=== PATIENT | male | born 1995 | race Caucasian/White ===

== ENCOUNTER 2018-10-22 16:15 | Emergency (ER) | payer OTHER ==
[2018-10-22 16:35] VITALS: BP 116/60; PULSE 78; TEMP 99.2; BMI 25.0
[2018-10-22] MEDS ORDERED: ALBUTEROL SO4 0.083% IH SOL 2.5 MG/3 ML VIAL.NEB. NEB ONE (17:07)
[2018-10-22] MEDS ORDERED: ALBUTEROL SO4 2.5/IPRATROPIUM 0.5 INH SOL 3 ML VIAL.NEB. NEB ONE (17:13)
--- NOTE | 2018-10-22 17:21 | PDOC ---
History of Present Illness - General Chief Complaint: Cold Symptoms Stated Complaint: COLD SYMPTOMS Time Seen by Provider: 10/22/18 16:45 History Source: Patient Exam Limitations: No Limitations - History of Present Illness Initial Comments: 10/22/18 17:08 23 yr male with no pmhx presents with cough for one week not improving with OTC meds and tessalon. Pt states he has had URI symptoms for 2 weeks that has improved, but the cough continues. non smoker no allergies. Timing/Duration: reports: getting worse Severity: reports: moderate Past History - Past Medical History Allergies/Adverse Reactions: Allergies Allergy/AdvReac Type Severity Reaction Status Date / Time Shellfish Allergy Mild Verified 02/22/12 16:23 Home Medications: Ambulatory Orders NK [No Known Home Medication] 10/22/18 COPD: No - Immunization History Immunization Up to Date: Yes - Suicide/Smoking/Psychosocial Hx Smoking Status: No Smoking History: Never smoked Number of Cigarettes Smoked Daily: 0 Information on smoking cessation initiated: No Hx Alcohol Use: No Drug/Substance Use Hx: No Substance Use Type: None Respiratory Specific PMHX - Complaint Specific PMHX Angina: No Bronchitis: No Pneumonia: No Pulmonary Embolus: No TB (Tuberculosis): No Review of Systems - Review of Systems Able to Perform ROS?: Yes Is the patient limited Bengali proficient: No Constitutional: No: Symptoms Reported HEENTM: No: Symptoms Reported Respiratory: Yes: Cough *Physical Exam - Vital Signs Last Vital Signs Temp Pulse Resp BP Pulse Ox 99.2 F 78 16 116/60 97 10/22/18 16:32 10/22/18 16:32 10/22/18 16:32 10/22/18 16:32 10/22/18 16:32 - Physical Exam General Appearance: Yes: Nourished, Appropriately Dressed HEENT: positive: EOMI, KEKE, Normal ENT Inspection, TMs Normal, Pharynx Normal. negative: Nasal Congestion, Rhinorrhea, TM Erythema Neck: positive: Supple. negative: Tender Respiratory/Chest: positive: Lungs Clear, Decreased Breath Sounds. negative: Rhonchi, Stridor, Wheezing, Hyperresonant Cardiovascular: positive: Regular Rhythm, Regular Rate Gastrointestinal/Abdominal: positive: Normal Bowel Sounds, Soft Musculoskeletal: positive: Normal Inspection Extremity: positive: Normal Capillary Refill, Normal Inspection, Normal Range of Motion Integumentary: positive: Normal Color, Dry, Warm Neurologic: positive: Fully Oriented, Alert, Normal Mood/Affect, Normal Response , Motor Strength 5/5 Moderate Sedation - Procedure Monitoring Vital Signs: Procedure Monitoring Vital Signs Temperature 99.2 F 10/22/18 16:32 Pulse Rate 78 10/22/18 16:32 Respiratory Rate 16 10/22/18 16:32 Blood Pressure 116/60 10/22/18 16:32 O2 Sat by Pulse Oximetry (%) 97 10/22/18 16:32 Medical Decision Making - Medical Decision Making 10/22/18 17:21 cc: cough for 1-2 weeks not improving with tessalon no fever no chills non smoker will get CXR r/o pneumonia *DC/Admit/Observation/Transfer Diagnosis at time of Disposition: Upper respiratory infection, acute - Discharge Dispostion Disposition: HOME Condition at time of disposition: Good - Referrals - Patient Instructions Printed Discharge Instructions: DI for Viral Upper Respiratory Infection-Child Additional Instructions: use the inhaler as directed drink pleanty of water to stay hydrated follow up with the ENT doctor if symptoms worsen or persist - Post Discharge Activity
== END 2018-10-22 17:48 | disposition home or self-care (01) ==
LOC: JERFT 16:15
DX: J06.9 Acute upper respiratory infection, unspecified (principal)
CPT/HCPCS: 71046-TC-FY; 99281-25

== ENCOUNTER 2019-05-31 19:35 | Emergency (ER) | payer OTHER ==
--- NOTE | 2019-05-31 19:40 | PDOC ---
Rapid Medical Evaluation Time Seen by Provider: 05/31/19 19:36 Medical Evaluation: Allergies Allergy/AdvReac Type Severity Reaction Status Date / Time Shellfish Allergy Mild Verified 02/22/12 16:23 05/31/19 19:37 This patient had a brief in-person evaluation by me. cc: ear pain x 3 days reports left ear worse than right. States used alcohol and ear drops complaining of decrease hearing in that ear PE: HEENT: + tenderness when tragus pressed and lobe pulled on left ear non tender mastoid Orders: none This patient will proceed to Ed for further evaluation Discharge Disposition - Diagnosis Ear pain, left - Referrals - Patient Instructions - Post Discharge Activity
[2019-05-31 19:41] VITALS: BP 132/80; PULSE 75; TEMP 98.7; BMI 25.6
[2019-05-31] MEDS ORDERED: NAPROXEN 500 MG TABLET (FP) PO ONE (21:08)
[2019-05-31] MEDS ORDERED: NAPROXEN 500 MG TABLET (FP) ONE (21:10)
--- NOTE | 2019-05-31 21:13 | PDOC ---
History of Present Illness - General Chief Complaint: Ear Problem Stated Complaint: EAR PAIN Time Seen by Provider: 05/31/19 19:36 History Source: Patient Exam Limitations: Clinical Condition - History of Present Illness Initial Comments: 05/31/19 21:22 Patient with no significant past medical history present with complaint of bilateral ear pain with more pain in left ear and pain to front of left ear for 3 days. Patient did not take anything for pain. Reported increased pain with opening mouth wide. Patient [place] the beach 5 [place] and feels like water in the left ear Timing/Duration: other (3 days) Past History - Past Medical History Allergies/Adverse Reactions: Allergies Allergy/AdvReac Type Severity Reaction Status Date / Time Shellfish Allergy Mild Verified 02/22/12 16:23 Home Medications: Ambulatory Orders Naproxen 500 mg PO BID PRN #20 tablet 05/31/19 Neomycin/Polymyxn/Hc [Cortisporin *Otic Suspenstion* -] 4 drop OT Q6H 5 Days #1 bottle 05/31/19 COPD: No - Immunization History Immunization Up to Date: Yes - Suicide/Smoking/Psychosocial Hx Smoking Status: No Smoking History: Unknown if ever smoked Number of Cigarettes Smoked Daily: 0 Hx Alcohol Use: No Drug/Substance Use Hx: No Substance Use Type: None Review of Systems - Review of Systems Able to Perform ROS?: Yes Is the patient limited Sri [place]ankan proficient: No Constitutional: No: Fever, Malaise HEENTM: Yes: Symptoms Reported, See HPI, Ear Pain (left ear). No: Eye Pain, Blurred Vision, Tearing, Recent change in vision, Double Vision, Cataracts, Ocular Prothesis, Ear Discharge, Nose Pain, Nose Congestion, Tinnitus, Nose Bleeding, Hearing Loss, Throat Pain, Throat Swelling, Mouth Pain, Dental Problems, Difficulty Swallowing, Mouth Swelling, Other Respiratory: No: Symptoms reported, See HPI, Cough, Orthopnea, Shortness of Breath, SOB with Exertion, SOB at Rest, Stridor, Wheezing, Productive cough, Hemoptysis, Other Cardiac (ROS): No: Symptoms Reported, See HPI, Chest Pain, Edema, Irregular Heart Rate, Lightheadedness, Palpitations, Syncope, Chest Tightness, Other ABD/GI: No: Nausea, Vomiting Neurological: No: Headache, Dizziness All Other Systems: Reviewed and Negative *Physical Exam - Vital Signs Last Vital Signs Temp Pulse Resp BP Pulse Ox 98.7 F 75 20 132/80 98 05/31/19 19:37 05/31/19 19:37 05/31/19 19:37 05/31/19 19:37 05/31/19 19:37 - Physical Exam Comments: 05/31/19 21:25 GENERAL: Well developed, well nourished. Awake and alert. No acute distress. HEENT: Moderate fluid in left ear canal with mild swelling in left ear canal. Moderate tenderness to left TMJ which is worse with occlusion of mouth against resistance. Mild tenderness to right TMJ. Normal tympanic membrane bilateral. No mastoid tenderness. Normocephalic, atraumatic. PERRLA, EOMI. No conjunctival pallor. Sclera are non-icteric. Moist mucous membranes. Oropharynx is clear. NECK: Supple. Full ROM. CARDIOVASCULAR: Regular rate and rhythm. No murmurs, rubs, or gallops. Distal pulses are 2+ and symmetric. PULMONARY: No evidence of respiratory distress. Lungs clear to auscultation bilaterally. No wheezing, rales or rhonchi. MUSCULOSKELETAL Normal range of motion at all joints. SKIN: Warm and dry. Normal capillary refill. NEUROLOGICAL: Alert, awake, appropriate. Gait is normal without ataxia. PSYCHIATRIC: Cooperative. Good eye contact. Appropriate mood General Appearance: Yes: Nourished, Appropriately Dressed. No: Apparent Distress Medical Decision Making - Medical Decision Making 05/31/19 21:23 Patient with no significant past medical history present with complaint of bilateral ear pain with more pain in left ear and pain to front of left ear for 3 days. Patient did not take anything for pain. Reported increased pain with opening mouth wide. Patient reported was at the beach 5 days ago and feels like water in the left ear Exam significant for moderate tenderness to left TMJ joint which is worse with occlusion of mouth against resistance. Moderate fluid in left ear canal with mild swelling in external ear canal.patient afebrile Symptoms likely otitis externa with TMJ arthralgia. Naproxen 500 mg by mouth ordered for pain. Patient be discharged home on naproxen when necessary for pain with neomycin polymycin ear drop for otitis externa with ENT follow-up. *DC/Admit/Observation/Transfer Diagnosis at time of Disposition: Ear pain, left TMJ arthralgia Qualifiers: Laterality: left Qualified Code(s): M26.622 - Arthralgia of left temporomandibular joint - Discharge Dispostion Disposition: HOME Condition at time of disposition: Stable Decision to Admit order: No - Prescriptions Prescriptions: Naproxen 500 mg PO BID PRN #20 tablet PRN Reason: pain Neomycin/Polymyxn/Hc [Cortisporin *Otic Suspenstion* -] 4 drop OT Q6H 5 Days #1 bottle - Referrals Referrals: Cory Zhang MD [Staff Physician] - - Patient Instructions Printed Discharge Instructions: Temporomandibular Disorder Additional Instructions: Take medication as prescribed. Apply warm compress to left jaw as needed for pain. Follow-up with referred ENT if no improvement in 3 days - Post Discharge Activity
== END 2019-05-31 21:15 | disposition home or self-care (01) ==
LOC: JER 19:35 → JERFT 19:35
DX: H92.02 Otalgia, left ear (principal); M26.622 Arthralgia of left temporomandibular joint
CPT/HCPCS: 99281-25